=== PATIENT | female | born 1965 | race Caucasian/White ===

== ENCOUNTER 2020-12-29 01:48 | Emergency (ER) | payer MEDICARE, MEDICAID ==
[~2020-12-29] VITALS: Ht 162.6 cm; Wt 69.1 kg
[2020-12-29 01:50] VITALS: BP 123/71
[2020-12-29] MEDS ORDERED: DIAZ2 PO (01:56)
[2020-12-29] MEDS ORDERED: CYCL10 PO (01:56)
[2020-12-29] MEDS ORDERED: GABA-1201 PO (01:56)
[2020-12-29] MEDS ORDERED: IBUPROFEN 400 MG TABLET PO ONE (03:00)
[2020-12-29] MEDS ORDERED: DiphenhydrAMINE HCL 25 MG CAPSULE PO ONE (03:00)
== END 2020-12-29 04:06 | disposition home or self-care (01) ==
LOC: EMS 01:54
DX: T63.441A Toxic effect of venom of bees, accidental (unintentional), initial encounter (principal); F12.90 Cannabis use, unspecified, uncomplicated; Z88.8 Allergy status to other drugs, medicaments and biological substances; Z79.899 Other long term (current) drug therapy; Y92.89 Other specified places as the place of occurrence of the external cause
CPT/HCPCS: 99283